=== PATIENT | female | born 1985 | race Caucasian/White ===

== ENCOUNTER 2020-05-05 20:37 | Outpatient (CLI) | payer OTHER | END 2020-05-05 20:38 | disposition critical access hospital (66) | LOC: EMS 20:37 | PROVIDERS: ATTEND Surgery | DX: R00.0 Tachycardia, unspecified (principal) | CPT/HCPCS: A0425; A0427 ==

== ENCOUNTER 2020-05-05 20:54 | Emergency (ER) | payer OTHER ==
[2020-05-05] MEDS ORDERED: SODIUM CHLORIDE 0.9% 1,000 ML IV STA (21:21)
--- NOTE | 2020-05-05 21:26 | ED Physician Documentation ---
History of Present Illness - Stated complaint Stated Complaint: RAPID HR - Chief complaint Chief Complaint: Cardiac - History obtained from History obtained from: Patient - History of Present Illness Timing: Enter time (1999), Today - Additonal information Additional information: 34 y/o female with a history of SVT has started a keto diet with fasting 16 hrs per day. She did not feel right earlier in the day and took her PRN propranolol. She had a [employer] coffee this afternoon and as she was doing some crafts at home she developed SVT. Medics found the patient with a heart rate of 150 and administered IV saline with 500ml in the patients heart rate is in the 110 range. The patient reports feeling better than usual after the fasting and keto but today has these symptoms. Review of Systems Constitutional: denies: Fever, Chills, Myalgias Eyes: denies: Decreased vision Ears: denies: Ear pain Nose: denies: Rhinorrhea / runny nose, Congestion Throat: denies: Sore throat Cardiac: reports: Palpitations. denies: Chest pain / pressure Respiratory: denies: Dyspnea, Cough GI: denies: Abdominal Pain, Nausea, Vomiting : denies: Dysuria, Frequency PD PAST MEDICAL HISTORY - Allergies Allergies/Adverse Reactions: Allergies Allergy/AdvReac Type Severity Reaction Status Date / Time Penicillins Allergy Unknown Verified 05/05/20 21:01 - Social History Does the pt smoke?: No Smoking Status: Never smoker PD ED PE NORMAL - Vitals Vital signs reviewed: Yes (hypertensive ) - General General: Alert and oriented X 3, No acute distress, Well developed/nourished - HEENT HEENT: Atraumatic, PERRL, EOMI - Neck Neck: Supple, no meningeal sign, No bony TTP - Cardiac Cardiac: No murmur, Other (tachy to 110) - Respiratory Respiratory: No respiratory distress, Clear bilaterally - Abdomen Abdomen: Normal bowel sounds, Soft, Non tender, Non distended, No organomegaly - Back Back: No CVA TTP, No spinal TTP - Derm Derm: Normal color, Warm and dry, No rash - Extremities Extremities: No deformity, No edema - Neuro Neuro: Alert and oriented X 3, respite worker 2-12 intact, No motor deficit, No sensory deficit, Normal speech Eye Opening: Spontaneous Motor: Obeys Commands Verbal: Oriented GCS Score: 15 - Psych Psych: Normal mood, Normal affect Results - Vitals Vitals: Vital Signs - 24 hr 05/05/20 20:52 Temperature 36.3 C L Heart Rate 98 Respiratory 17 Rate Blood Pressure 132/78 H O2 Saturation 98 Oxygen O2 Source Room air - EKG (time done) 2056 Rate: Rate (enter#) (106) Rhythm: Sinus tachycardia Ischemia: Normal ST segments Compare to prior EKG: Old EKG unavailable Computer interpretation: Agree with computer - Labs Labs: Laboratory Tests 05/05/20 05/05/20 05/05/20 21:44 21:46 21:46 WBC 11.8 H RBC 5.01 Hgb 13.5 Hct 42.3 MCV 84.4 MCH 26.9 L MCHC 31.9 L RDW 13.8 Plt Count 252 MPV 11.4 H Neut # (Auto) 9.0 H Lymph # (Auto) 2.1 [place] # (Auto) 0.6 Eos # (Auto) 0.1 Baso # (Auto) 0.1 Absolute Nucleated RBC 0.00 Nucleated RBC % 0.0 Sodium 138 Potassium 3.1 L Chloride 102 Carbon Dioxide 22 Anion Gap 14.0 H BUN 15 Creatinine 0.6 Estimated GFR (MDRD) 114 Glucose 101 H Calcium 9.4 Total Bilirubin 0.2 AST 27 ALT 19 Alkaline Phosphatase 71 Troponin I High Sens Total Protein 8.0 Albumin 4.7 Globulin 3.3 Albumin/Globulin Ratio 1.4 Lipase 49 TSH Urine Color YELLOW Urine Clarity CLEAR Urine pH 6.0 Ur Specific [place] <=1.005 Urine Protein TRACE Urine Glucose (UA) NEGATIVE Urine Ketones TRACE Urine Occult Blood NEGATIVE Urine Nitrite NEGATIVE Urine Bilirubin NEGATIVE Urine Urobilinogen 0.2 (NORMAL) Ur Leukocyte Esterase NEGATIVE Ur Microscopic Review NOT INDICATED Urine Culture Comments NOT INDICATED Urine HCG, Qual NEGATIVE 05/05/20 05/05/20 21:46 21:46 WBC RBC Hgb Hct MCV MCH MCHC RDW Plt Count MPV Neut # (Auto) Lymph # (Auto) [place] # (Auto) Eos # (Auto) Baso # (Auto) Absolute Nucleated RBC Nucleated RBC % Sodium Potassium Chloride Carbon Dioxide Anion Gap BUN Creatinine Estimated GFR (MDRD) Glucose Calcium Total Bilirubin AST ALT Alkaline Phosphatase Troponin I High Sens 3.3 Total Protein Albumin Globulin Albumin/Globulin Ratio Lipase TSH 1.54 Urine Color Urine Clarity Urine pH Ur Specific [place] Urine Protein Urine Glucose (UA) Urine Ketones Urine Occult Blood Urine Nitrite Urine Bilirubin Urine Urobilinogen Ur Leukocyte Esterase Ur Microscopic Review Urine Culture Comments Urine HCG, Qual - Rads (name of study) Chest Radiology: Prelim report reviewed (Impression: 1. No acute cardiopulmonary process.), EMP read indepedently, See rad report Procedures - IVC sono (time) 2109 Bedside IVC sono: IVC measures (cm) (0.95 after 500ml in), Dehydration (est total of 2 liter deficit) PD MEDICAL DECISION MAKING - ED course Complexity details: reviewed results, re-evaluated patient, considered differential, d/w patient ED course: 34 y/o female with a history of SVT has an episode this evening related to dieting and caffeine and she is found to be dehydrated on interrogation of the IVC and she is administered IV saline. She is hypokalemic as well and this has been one of her findings previously. She is administered PO potassium. The patient has improved and her heart rate with administration of volume. Her urine was inappropriately dilute suggesting the use of a diuretic. I discussed this finding with the patient and she can only think of the green tea and caffeine that she is using and I have asked her to reduce the amount of the she is using. I have asked her to stop any supplements that she is using in her dieting. Departure - Departure Disposition: 01 Home, Self Care Clinical Impression: Sinus tachycardia, Dehydration, Hypokalemia Condition: Stable Instructions: ED Dehydration, ED Potassium Deficiency, ED Tachycardia Pat PSVT Follow-Up: ESTEBAN Darby [Provider Group]
[2020-05-05 21:55] LABS: BASOPHILS # (AUTO) 0.1 10^3/uL (0.0-0.1); BASOPHILS % (AUTO) 0.4 %; EOSINOPHILS # (AUTO) 0.1 10^3/uL (0.0-0.7); EOSINOPHILS % (AUTO) 0.5 %; HGB - HEMOGLOBIN 13.5 g/dL (12.0-16.0); LYMPHOCYTES # (AUTO) 2.1 10^3/uL (1.5-3.5); LYMPHOCYTES % (AUTO) 17.9 %; MEAN CORPUSCULAR HEMOGLOBIN 26.9 pg (27.0-31.0); MEAN CORPUSCULAR HGB CONC 31.9 g/dL (32.0-36.0); MEAN CORPUSCULAR VOLUME 84.4 fL (81.0-99.0); MEAN PLATELET VOLUME 11.4 fL (7.9-10.8); MONOCYTES # (AUTO) 0.6 10^3/uL (0.0-1.0); MONOCYTES % (AUTO) 4.7 %; NEUTROPHILS % (AUTO) 76.3 %; PLT - PLATELET COUNT 252 10^3/uL (130-450); RED BLOOD COUNT 5.01 10^6/uL (4.20-5.40); RED CELL DISTRIBUTION WIDTH 13.8 % (12.0-15.0); WHITE BLOOD COUNT 11.8 x10^3/uL (4.8-10.8)
[2020-05-05 21:56] LABS: BILIRUBIN,URINE NEGATIVE (NEGATIVE); GLUCOSE, URINE (UA) NEGATIVE (NEGATIVE); KETONES,URINE (UA) TRACE mg/dL (NEGATIVE); LEUKOCYTE ESTERASE, URINE NEGATIVE (NEGATIVE); NITRITE,URINE NEGATIVE (NEGATIVE); OCCULT BLOOD,URINE NEGATIVE (NEGATIVE); PROTEIN,URINE TRACE mg/dL (NEGATIVE); UROBILINOGEN,URINE 0.2 (NORMAL) E.U./dL (NORMAL)
[2020-05-05 22:01] LABS: CLARITY,URINE CLEAR (CLEAR); HCG UR QUAL NEGATIVE
[2020-05-05 22:04] LABS: ALBUMIN 4.7 g/dL (3.2-5.5); ALBUMIN/GLOBULIN RATIO 1.4 (1.0-2.2); BILIRUBIN,TOTAL 0.2 mg/dL (0.2-1.0); CALCIUM 9.4 mg/dL (8.5-10.3); CREATININE 0.6 mg/dL (0.4-1.0)
[2020-05-05] MEDS ORDERED: POTASSIUM CHLORIDE 20 MEQ TABLET PO STA (22:08)
[2020-05-05] MEDS ORDERED: POTASSIUM CHLORIDE 20 MEQ/15 ML UDC PO STA (22:20)
[2020-05-05 23:09] VITALS: BP 122/75
--- NOTE | 2020-05-06 10:15 | XRAY Report ---
PROCEDURE: Chest 1 View X-Ray INDICATIONS: chest pain TECHNIQUE: One view of the chest was acquired. COMPARISON: None FINDINGS: Overlying EKG wires. Surgical changes and devices: None. Lungs and pleura: No pleural effusions or pneumothorax. Lungs are clear. Mediastinum: Mediastinal contours appear normal. Heart size is normal. Bones and chest wall: No suspicious bony lesions. Overlying soft tissues appear unremarkable. IMPRESSION: No evidence of an acute cardiopulmonary abnormality. Agree with preliminary report. Reviewed by: Gerardo Mac DO on 05/06/2020 9:14 AM [facility] Approved by: Gerardo Mac DO on 05/06/2020 9:14 AM [facility] Station ID: [id number]
== END 2020-05-05 23:09 | disposition home or self-care (01) ==
LOC: ED 20:54
DX: R00.0 Tachycardia, unspecified (principal); E86.0 Dehydration; E87.6 Hypokalemia; Z86.79 Personal history of other diseases of the circulatory system
CPT/HCPCS: 36415; 71045; 81003; 81025; 83690; 84484; 93005; 96360; 99284; A9270; 80053; 81001; 84443; 85025; 87086

== ENCOUNTER 2020-07-27 17:03 | Emergency (ER) | payer OTHER ==
[2020-07-27 17:40] LABS: BASOPHILS % (AUTO) 0.3 %; EOSINOPHILS % (AUTO) 0.1 %; HCT - HEMATOCRIT 41.3 % (37.0-47.0); HGB - HEMOGLOBIN 13.3 g/dL (12.0-16.0); LYMPHOCYTES # (AUTO) 2.2 10^3/uL (1.5-3.5); LYMPHOCYTES % (AUTO) 19.3 %; MEAN CORPUSCULAR HEMOGLOBIN 26.3 pg (27.0-31.0); MEAN CORPUSCULAR HGB CONC 32.2 g/dL (32.0-36.0); MEAN CORPUSCULAR VOLUME 81.6 fL (81.0-99.0); MEAN PLATELET VOLUME 11.4 fL (7.9-10.8); MONOCYTES # (AUTO) 0.5 10^3/uL (0.0-1.0); MONOCYTES % (AUTO) 4.4 %; NEUTROPHILS # (AUTO) 8.7 10^3/uL (1.5-6.6); NEUTROPHILS % (AUTO) 75.6 %; PLT - PLATELET COUNT 250 10^3/uL (130-450); RED BLOOD COUNT 5.06 10^6/uL (4.20-5.40); RED CELL DISTRIBUTION WIDTH 14.4 % (12.0-15.0); WHITE BLOOD COUNT 11.5 x10^3/uL (4.8-10.8)
[2020-07-27] MEDS ORDERED: PROPRANOLOL 10 MG TABLET PO STA (17:41)
--- NOTE | 2020-07-27 17:43 | ED Physician Documentation ---
History of Present Illness - Stated complaint Stated Complaint: ESPARZA,PALPITATIONS - Chief complaint Chief Complaint: Cardiac - Additonal information Additional information: 35-year-old female presents emergency department for evaluation of elevated heart rate and palpitations. She reports to me that for at least 10 years she has had intermittent palpitations and tachycardia. She has had an extensive cardiac work-up through cardiology services at [place] which have included a Holter monitor echocardiogram and stress testing without an obvious cause for her intermittent tachycardia. She was advised to take propanolol 10 mg as need ed. Over the last few days patient has noticed an increase in the sensation of palpitations and she is feeling somewhat short of breath with exertion. She was in [place] today and without her propanolol therefore [place] she comes to the emergency department. She is also in attendance with her toddler child. Patient denies tobacco or any drug use. [place] [employer] [place] Review of Systems Constitutional: denies: Fever, Chills Eyes: reports: Reviewed and negative Ears: reports: Reviewed and negative Nose: reports: Reviewed and negative Throat: reports: Reviewed and negative Cardiac: reports: Palpitations. denies: Chest pain / pressure Respiratory: reports: Dyspnea. denies: Cough GI: reports: Reviewed and negative : reports: Reviewed and negative Skin: reports: Reviewed and negative PD PAST MEDICAL HISTORY - Present Medications Home Medications: Ambulatory Orders Medication Instructions Recorded Confirmed Propranolol [Inderal] 10 mg PO DAILY 07/27/20 07/27/20 - Allergies Allergies/Adverse Reactions: Allergies Allergy/AdvReac Type Severity Reaction Status Date / Time Penicillins Allergy Unknown Verified 07/27/20 17:06 - Social History Does the pt smoke?: No Smoking Status: Never smoker PD ED PE EXPANDED - General General: Alert, No acute distress - Cardiac Cardiac: Tachy, Radial strong equal, Pedal strong equal, Cap refill < 2 sec. No: Murmur Present - Respiratory Respiratory: Clear to ausultation shirin. No: Distress, Labored - Abdomen Abdomen: Normal Bowel sounds. No: Tender to palpation - Back Back: Normal exam. No: Vertebral tenderness - Derm Derm: Normal color, Warm and dry - Extremities Extremities: Normal. No: Deformity, Tenderness - Neuro Neuro: Alert and Oriented X 3, CNII-XII intact - GCS Eye Opening: Spontaneous Motor: Obeys Commands Verbal: Oriented Total: 15 Results - Vitals Vitals: Vital Signs - 24 hr 07/27/20 17:06 Temperature 36.7 C Heart Rate 122 H Respiratory 18 Rate Blood Pressure 126/85 H O2 Saturation 100 Oxygen O2 Source Room air - EKG (time done) 1711 Rate: Rate (enter#) (133) Rhythm: Sinus tachycardia [place]: Normal Intervals: Normal [place] QRS: Normal Ischemia: Normal ST segments Compare to prior EKG: Old EKG unavailable Computer interpretation: Agree with computer - Labs Labs: Laboratory Tests 07/27/20 07/27/20 07/27/20 17:18 17:18 17:18 WBC 11.5 H RBC 5.06 Hgb 13.3 Hct 41.3 MCV 81.6 MCH 26.3 L MCHC 32.2 RDW 14.4 Plt Count 250 MPV 11.4 H Neut # (Auto) 8.7 H Lymph # (Auto) 2.2 [place] # (Auto) 0.5 Eos # (Auto) 0.0 Baso # (Auto) 0.0 Absolute Nucleated RBC 0.00 Nucleated RBC % 0.0 Sodium 137 Potassium 3.3 L Chloride 104 Carbon Dioxide 23 Anion Gap 10.0 BUN 6 Creatinine 0.6 Estimated GFR (MDRD) 113 Glucose 105 H Calcium 9.5 Total Bilirubin 0.4 AST 25 ALT 20 Alkaline Phosphatase 72 Troponin I High Sens 2.4 Total Protein 8.3 H Albumin 4.8 Globulin 3.5 Albumin/Globulin Ratio 1.4 Lipase 28 TSH 07/27/20 17:18 WBC RBC Hgb Hct MCV MCH MCHC RDW Plt Count MPV Neut # (Auto) Lymph # (Auto) [place] # (Auto) Eos # (Auto) Baso # (Auto) Absolute Nucleated RBC Nucleated RBC % Sodium Potassium Chloride Carbon Dioxide Anion Gap BUN Creatinine Estimated GFR (MDRD) Glucose Calcium Total Bilirubin AST ALT Alkaline Phosphatase Troponin I High Sens Total Protein Albumin Globulin Albumin/Globulin Ratio Lipase TSH 1.73 PD MEDICAL DECISION MAKING - ED course Complexity details: reviewed results, re-evaluated patient, d/w patient ED course: 35-year-old female presents emergency department for evaluation of intermittent tachycardia that she has had for about 10 years and previously had a fairly extensive cardiac work-up. No true etiology was found and she was advised to take 10 mg of propanolol as needed when she is experiencing palpitations. She was out and about today in [place] and did not have the propanolol. Therefore she comes to the emergency department. She has had no syncope. Screening labs reveal no anemia. She is mildly hypokalemic. This was repleted with 20 potassium here in the emergency department. Her EKG showed sinus tachycardia without any ischemic changes. High-sensitivity troponin was negative. By Wells criteria she is low risk for PE therefore D-dimer deferred. She has no c/o chest pain or SOA. Her heart rate also improved into the high 90s and low 100s after receiving 10 mg of propanolol. I advised patient to have very close follow-up with her primary care provider. Departure - Departure Disposition: Home, Self Care Clinical Impression: Tachycardia, Hypokalemia Condition: Stable Record reviewed to determine appropriate education?: Yes Instructions: ED Diet High Potassium Comments: You are seen in the emergency department today for concerns of palpitations and an elevated heart rate. As we discussed you have had a fairly extensive work-up of this in the past and no cause was found. They had recommended that you take propanolol 10 mg as needed when you are experiencing the palpitations. Your screening labs today are essentially normal with the exception of a mild Gerardo low potassium. You were given 20 mEq potassium here in the emergency department. You are also given 10 mg of propanolol which successfully reduced your heart rate. It is very important that you carry your propanolol in your purse with you when you are out and about in order to be able to help control your palpitations and elevated heart rate. Return to the emergency department if you develop chest pain have any fainting episodes. Please discuss this ED visit with your primary care provider within the next week.
[2020-07-27 17:57] LABS: ALBUMIN 4.8 g/dL (3.2-5.5); ALBUMIN/GLOBULIN RATIO 1.4 (1.0-2.2); BILIRUBIN,TOTAL 0.4 mg/dL (0.2-1.0); CALCIUM 9.5 mg/dL (8.5-10.3); CREATININE 0.6 mg/dL (0.4-1.0); POTASSIUM 3.3 mmol/L (3.5-5.0); TOTAL PROTEIN 8.3 g/dL (6.7-8.2)
--- NOTE | 2020-07-27 18:05 | XRAY Report ---
PROCEDURE: Chest 1 View X-Ray INDICATIONS: Chest pain TECHNIQUE: One view of the chest was acquired. COMPARISON: CXR 05/05/2020. FINDINGS: Surgical changes and devices: None. Lungs and pleura: No pleural effusions or pneumothorax. Lungs are clear. Mediastinum: Mediastinal contours appear normal. Heart size is normal. Bones and chest wall: No suspicious bony lesions. Overlying soft tissues appear unremarkable. IMPRESSION: No acute cardiopulmonary abnormality. Reviewed by: Joo Ramos MD on 07/27/2020 6:04 PM PDT Approved by: Joo Ramos MD on 07/27/2020 6:04 PM PDT Station ID: [id number]
[2020-07-27] MEDS ORDERED: POTASSIUM CHLORIDE 20 MEQ TABLET PO STA (18:42)
[2020-07-27] MEDS ORDERED: POTASSIUM CHLORIDE 20 MEQ/15 ML UDC PO STA (18:52)
[2020-07-27 19:22] VITALS: BP 134/90
== END 2020-07-27 19:22 | disposition home or self-care (01) ==
LOC: ED 17:03
DX: R00.0 Tachycardia, unspecified (principal); E87.6 Hypokalemia
CPT/HCPCS: 36415; 71045; 80053; 83690; 84443; 84484; 85025; 93005; 99284; A9270

== ENCOUNTER 2020-11-21 18:50 | Emergency (ER) | payer OTHER ==
--- NOTE | 2020-11-21 19:29 | ED Physician Documentation ---
History of Present Illness - Stated complaint Stated Complaint: CHEST FLUTTERS - Chief complaint Chief Complaint: Cardiac - History obtained from History obtained from: Patient - History of Present Illness Timing: Today Pain level max: 0 Pain level now: 0 - Additonal information Additional information: Patient is a 35-year-old female who has a history of sinus tachycardia, takes propanolol when she has the tachycardia, but did not take it today. She states she has felt like her heart has been fluttering which is different than the normal running of her heart. She states she has an apple watch and that the EKG looked abnormal to her. She came in for evaluation. No chest pain. No shortness of breath. Nothing makes it better or worse. Review of Systems Constitutional: denies: Fever, Chills Nose: denies: Rhinorrhea / runny nose, Congestion Respiratory: denies: Cough GI: denies: Nausea, Vomiting, Diarrhea Skin: denies: Rash Musculoskeletal: denies: Neck pain, Back pain Neurologic: denies: Headache PD PAST MEDICAL HISTORY - Past Medical History Past Medical History: Yes Cardiovascular: Other (sinus tachycardia) - Past Surgical History Past Surgical History: No - Present Medications Home Medications: Ambulatory Orders Medication Instructions Recorded Confirmed Propranolol [Inderal] 10 mg PO DAILY 07/27/20 07/27/20 - Allergies Allergies/Adverse Reactions: Allergies Allergy/AdvReac Type Severity Reaction Status Date / Time Penicillins Allergy Unknown Verified 11/21/20 18:58 - Social History Does the pt smoke?: No Smoking Status: Never smoker Does the pt drink ETOH?: No Does the pt have substance abuse?: No - Family History Family history: reports: Non contributory - Immunizations Immunizations are current?: Yes PD ED PE NORMAL - Vitals Vital signs reviewed: Yes - General General: Alert and oriented X 3, No acute distress, Well developed/nourished - HEENT HEENT: PERRL, Moist mucous membranes - Neck Neck: Supple, no meningeal sign - Cardiac Cardiac: RRR, No murmur, Strong equal pulses - Respiratory Respiratory: No respiratory distress, Clear bilaterally - Abdomen Abdomen: Soft, Non tender, Non distended - Derm Derm: Warm and dry - Neuro Neuro: Alert and oriented X 3 - Psych Psych: Normal mood, Normal affect Results - Vitals Vitals: Vital Signs - 24 hr 11/21/20 11/21/20 18:55 19:43 Temperature 36.7 C Heart Rate 160 H 103 H Respiratory 14 20 Rate Blood Pressure 116/97 H 136/81 H O2 Saturation 100 100 Oxygen O2 Source Room air - EKG (time done) 1858 Rate: Rate (enter#) (145) Rhythm: NSR [place]: Normal Intervals: Normal [place] QRS: Normal Ischemia: Normal ST segments PD MEDICAL DECISION MAKING - ED course Complexity details: reviewed results, re-evaluated patient, considered differential, d/w patient ED course: Sinus tachycardia on EKG here. The patient did have EKG tracings from her watch that were started on her phone. These were reviewed and all were found to be sinus tachycardia. No arrhythmias. No A. fib. No PVCs. She will take her propranolol as directed. Patient counseled regarding signs and symptoms for which I believe and urgent re-evaluation would be necessary. Patient with good understanding of and agreement to plan and is comfortable going home at this t jeannette This document was made in part using voice recognition software. While efforts are made to proofread this document, sound alike and grammatical errors may occur. Departure - Departure Disposition: 01 Home, Self Care Clinical Impression: Sinus tachycardia, Palpitations Condition: Good Instructions: ED Palpitations Follow-Up: Your,doctor in 1 week [Other] Comments: Continue your current medications at home. Follow-up with your doctor for further care. Your doctor may want to order a sleep study on you to see if sleep apnea is causing your symptoms. Return if you worsen. Discharge Date/Time: 11/21/20 19:44
[2020-11-21 19:43] VITALS: BP 136/81
== END 2020-11-21 19:44 | disposition home or self-care (01) ==
LOC: ED 18:50
DX: R00.0 Tachycardia, unspecified (principal)
CPT/HCPCS: 93005; 99284